=== PATIENT | male | born 1995 | race Caucasian/White ===

== ENCOUNTER 2024-09-09 06:54 | Inpatient (IN) | payer BC, OTHER ==
[2024-09-09 07:01] LABS: Glucose,Whole Blood 151 mg/dL (70-110)
[2024-09-09 07:09] LABS: Basophils # (A) 0.04 10*3/uL (0.00-0.10); Basophils % (A) 0.7 %; Eosinophils # (A) 0.21 10*3/uL (0.04-0.35); Eosinophils % (A) 3.8 %; HCT 46.9 % (39.6-50.0); HGB 15.9 g/dL (13.0-17.0); Lymphocytes % (A) 25.3 %; MCH 28.5 pg (27.0-32.0); MCHC 33.9 g/dL (32.0-37.0); MCV 84.2 fL (80.0-97.0); Mean Platelet Volume 10.5 fL (9.5-12.2); Monocytes # (A) 0.27 10*3/uL (0.20-1.00); Monocytes % (A) 4.9 %; Neutrophils # (A) 3.55 10*3/uL (1.80-7.70); Neutrophils % (A) 64.2 %; Platelet Count 194 10*3/uL (140-440); RBC 5.57 10*6/uL (4.40-5.60); RDW 11.9 % (11.5-14.5); WBC 5.53 10*3/uL (4.50-10.00)
[2024-09-09 07:24] LABS: AST 24 U/L (17-59); African American GFR (CKD) >90 (>60 ml/min/1.73 sqM); Alkaline Phosphatase 49 U/L (38-126); Anion Gap 20 mmol/L; Blood Urea Nitrogen 14 mg/dL (9-20); Calcium 9.8 mg/dL (8.4-10.2); Carbon Dioxide 13 mmol/L (22-30); Chloride 106 mmol/L (98-107); Glucose 173 mg/dL (74-99); Magnesium 2.2 mg/dL (1.6-2.3); Non-African American GFR(CKD) >90 (>60 ml/min/1.73 sqM); Potassium 4.2 mmol/L (3.5-5.1); Sodium 139 mmol/L (137-145); Total Bilirubin 0.6 mg/dL (0.2-1.3); Total Protein 7.5 g/dL (6.3-8.2)
--- NOTE | 2024-09-09 07:24 | ED ---
Seizure HPI - General Chief Complaint: Seizure Stated Complaint: Seizure Time Seen by Provider: 09/09/24 06:59 Source: patient, EMS, RN notes reviewed Mode of arrival: EMS Limitations: no limitations - History of Present Illness Initial Comments: 28-year-old male presents emerged part via EMS which complaint seizure. Patient is here with significant other states that he had a tonic-clonic seizure approximately 2 minutes upon EMS arrival patient was postictal. Patient has not no current complaints but is still confused. Patient has no history of seizures reported has been having some pain episodes over the last several months but has not been evaluated by a physician, patient does not take any current medications no illicit drug use no alcohol abuse. - Related Data Allergies Allergy/AdvReac Type Severity Reaction Status Date / Time No Known Allergies Allergy Verified 09/09/24 07:00 Review of Systems ROS Statement: Those systems with pertinent positive or pertinent negative responses have been documented in the HPI. ROS Other: All systems not noted in ROS Statement are negative. Past Medical History Past Medical History: No Reported History History of Any Multi-Drug Resistant Organisms: None Reported Past Surgical History: No Surgical Hx Reported Past Psychological History: No Psychological Hx Reported Smoking Status: Current every day smoker Past Alcohol Use History: None Reported Past Drug Use History: Marijuana General Exam Limitations: no limitations General appearance: alert, in no apparent distress Head exam: Present: atraumatic, normocephalic, normal inspection Eye exam: Present: normal appearance, PERRL, EOMI. Absent: scleral icterus, conjunctival injection, periorbital swelling ENT exam: Present: normal exam, normal oropharynx, mucous membranes moist Neck exam: Present: normal inspection, full ROM. Absent: tenderness, meningismus, lymphadenopathy Respiratory exam: Present: normal lung sounds bilaterally. Absent: respiratory distress, wheezes, rales, rhonchi, stridor Cardiovascular Exam: Present: regular rate, normal rhythm, normal heart sounds. Absent: systolic murmur, diastolic murmur, rubs, gallop, clicks GI/Abdominal exam: Present: soft, normal bowel sounds. Absent: distended, tenderness, guarding, rebound, rigid Neurological exam: Present: alert Course Vital Signs 09/09/24 09/09/24 06:55 08:06 Temperature 96.8 F L 97.4 F L Pulse Rate 89 68 Respiratory 17 20 Rate Blood Pressure 110/56 102/64 O2 Sat by Pulse 98 97 Oximetry Medical Decision Making - Medical Decision Making Was pt. sent in by a medical professional or institution (SREEKANTH Morgan, MAIL TECHNICIAN, urgent care, hospital, or [facility]cf...) When possible be specific @ -No Did you speak to anyone other than the patient for history (EMS, parent, family, police, friend...)? What history was obtained from this source @ -Friend providing history of complaint Did you review nursing and triage notes (agree or disagree)? Why? @ -I reviewed and agree with nursing and triage notes Were old charts reviewed (outside hosp., previous admission, EMS record, old EKG, old radiological studies, urgent care reports/EKG's, [facility] records)? Report findings @ -No old charts were reviewed Differential Diagnosis (chest pain, altered mental status, abdominal pain women, abdominal pain men, vaginal bleeding, weakness, fever, dyspnea, syncope, headache, dizziness, GI bleed, back pain, seizure, CVA, palpatations, mental health, musculoskeletal)? @ -Differential Seizure: Recurrent seizure disorder, febrile seizure, alcohol withdrawal, stimulants, meningitis, encephalitis, intercranial hemorrhage, intracranial tumor, stroke, eclampsia, thyrotoxicosis, hypocalcemia, hyponatremia, hypernatremia, hypomagnesemia, psychogenic, this is not meant to be an all-inclusive list. EKG interpreted by me (3pts min.). @ -As above X-rays interpreted by me (1pt min.). @ -None done CT interpreted by me (1pt min.). @ -CT brain showing no acute intracranial hemorrhage, mass effect U/S interpreted by me (1pt. min.). @ -None done What testing was considered but not performed or refused? (CT, X-rays, U/S, labs)? Why? @ -None What meds were considered but not given or refused? Why? @ -None Did you discuss the management of the patient with other professionals (nani conn i.e. SREEKANTH Morgan, MAIL TECHNICIAN, lab, RT, psych nurse, socially responsible investment adviser, risk manager, teacher, community service patrol officer, director case)? Give summary @ -EMH for admission Was smoking cessation discussed for >3mins.? @ -No Was critical care preformed (if so, how long)? @ -No Were there social determinants of health that impacted care today? How? (Homelessness, low income, unemployed, alcoholism, drug addiction, transportat ion, low edu. Level, literacy, decrease access to med. care, snf, rehab)? @ -No Was there de-escalation of care discussed even if they declined (Discuss DNR or withdrawal of care, Hospice)? DNR status @ -No What co-morbidities impacted this encounter? (DM, HTN, Smoking, COPD, CAD, Cancer, CVA, ARF, Chemo, Hep., AIDS, mental health diagnosis, sleep apnea, morbid obesity)? @ -None Was patient admitted / discharged? Hospital course, mention meds given and route, prescriptions, significant lab abnormalities, going to OR and other pertinent info. @ -Admitted patient presented for new onset seizure. Patient did have prolonged postictal state. Patient has negative workup otherwise will be admitted for neurology evaluation. Undiagnosed new problem with uncertain prognosis? @ -No Drug Therapy requiring intensive monitoring for toxicity (Heparin, Nitro, Insulin, Cardizem)? @ -No Were any procedures done? @ -No Diagnosis/symptom? @ -New onset seizures Acute, or Chronic, or Acute on Chronic? @ -Acute Uncomplicated (without systemic symptoms) or Complicated (systemic symptoms)? @ -complicated Side effects of treatment? @ -No Exacerbation, Progression, or Severe Exacerbation? @ -No Poses a threat to life or bodily function? How? (Chest pain, USA, AL, pneumonia, PE, COPD, DKA, ARF, appy, cholecystitis, CVA, Diverticulitis, Homicidal, Suicidal, threat to staff... and all critical care pts) @ -No - Lab Data Result diagrams: 09/09/24 07:01 09/09/24 07:01 Lab Results 09/09/24 09/09/24 09/09/24 Range/Units 07:00 07:01 07:01 WBC 5.53 (4.50-10.00) 10*3/uL RBC 5.57 (4.40-5.60) 10*6/uL Hgb 15.9 (13.0-17.0) g/dL Hct 46.9 (39.6-50.0) % MCV 84.2 (80.0-97.0) fL MCH 28.5 (27.0-32.0) pg MCHC 33.9 (32.0-37.0) g/dL Plt Count 194 (140-440) 10*3/uL MPV 10.5 (9.5-12.2) fL Immature Gran % (Auto) 1.1 % Neutrophils % 64.2 % Lymphocytes % 25.3 % Monocytes % 4.9 % Eosinophils % 3.8 % Basophils % 0.7 % Immature Gran # 0.06 H (0.00-0.04) 10*3/uL Neutrophils # 3.55 (1.80-7.70) 10*3/uL Lymphocytes # 1.40 (0.90-5.00) 10*3/uL Monocytes # 0.27 (0.20-1.00) 10*3/uL Eosinophils # 0.21 (0.04-0.35) 10*3/uL Basophils # 0.04 (0.00-0.10) 10*3/uL Sodium 139 (137-145) mmol/L Potassium 4.2 (3.5-5.1) mmol/L Chloride 106 (98-107) mmol/L Carbon Dioxide 13 L (22-30) mmol/L Anion Gap 20 mmol/L BUN 14 (9-20) mg/dL Creatinine 0.92 (0.66-1.25) mg/dL Est GFR (CKD-EPI)AfAm >90 (>60 ml/min/1.73 sqM) Est GFR (CKD-EPI)NonAf >90 (>60 ml/min/1.73 sqM) Glucose 173 H (74-99) mg/dL POC Glucose (mg/dL) 151 H (70-110) mg/dL POC [employer] Consultant ID Dye Aman Calcium 9.8 (8.4-10.2) mg/dL Magnesium 2.2 (1.6-2.3) mg/dL Total Bilirubin 0.6 (0.2-1.3) mg/dL AST 24 (17-59) U/L ALT 29 (4-49) U/L Alkaline Phosphatase 49 (38-126) U/L Total Protein 7.5 (6.3-8.2) g/dL Albumin 5.0 (3.5-5.0) g/dL - EKG Data -: EKG Interpreted by Me EKG Comments: EKG performed at 7: 05 sinus rhythm with a rate of 73 UT 145 QRS 94 QT/QTc 385/411 Disposition Clinical Impression: New onset seizure Disposition: ADMITTED IP TO THIS HOSP Condition: Fair Instructions (If sedation given, give patient instructions): Seizure/Epilepsy Discharge Instructions & Follow-Up Referrals: None,Stated [Primary Care Provider] - 1-2 days Time of Disposition: 08:34
[2024-09-09 07:31] LABS: ALT 29 U/L (4-49)
[2024-09-09] MEDS: SODIUM CHLORIDE 0.9% 500 ML 500 ML IV STA (08:03)
--- NOTE | 2024-09-09 08:03 | CT ---
EXAMINATION TYPE: CT brain wo con DATE OF EXAM: 09/09/2024 7:42 AM COMPARISON: None. CLINICAL INDICATION: Male, 28 years old with history of seizure activity new onset, new onset of seiz ure TECHNIQUE: Brain: Axial CT images of the brain were obtained with coronal and sagittal reformats created and rev iewed. Contrast used: None. Oral contrast used: None. CT DLP: 1097.4 mGycm, Automated exposure control for dose reduction was used. FINDINGS: Brain: Extra-axial spaces: No abnormal extra-axial fluid collections. Ventricular system: Within normal limits Cerebral parenchyma: No acute intraparenchymal hemorrhage or mass effect. The ya-white junction is well differentiated. Cerebellum: Unremarkable. Mass effect: No evidence of midline shift. Intracranial vasculature: unremarkable Soft tissues: Normal. Calvarium/osseous structures: No depressed skull fracture. Paranasal sinuses and mastoid air cells: Mild scattered paranasal sinus disease. Visualized orbits: Orbital contents are intact. IMPRESSION: No acute intracranial process. [facility], , 09/09/2024 8:00 AM
[2024-09-09] MEDS ORDERED: NALOXONE 0.4 MG/ML 1 ML VIAL IV PRN (08:34)
[2024-09-09] MEDS ORDERED: LORazepam 1 MG/0.5 ML VIAL IV PRN (08:35)
[2024-09-09 08:40] LABS: Amphetamine Screen,Urine Not Detected (NotDetected); Barbiturate Screen,Urine Not Detected (NotDetected); Benzodiazepines Screen,Urine Not Detected (NotDetected); Cocaine Screen,Urine Not Detected (NotDetected); Methadone Screen, Urine Not Detected (NotDetected); Opiate Screen,Urine Not Detected (NotDetected); Oxycodone Screen, Urine Not Detected (NotDetected); Phencyclidine Screen,Urine Not Detected (NotDetected); Tricyclic Antidepressant,Urine Not Detected (NotDetected); Urn Cannabinoid Scrn Detected (NotDetected)
[2024-09-09] MEDS: KETOROLAC 15 MG/ML 1 ML VIAL IVP STA (09:24)
[2024-09-09] MEDS: levETIRAcetam IV 500 MG/5 ML VIAL IVP STA (09:26)
--- NOTE | 2024-09-09 14:15 | XR ---
EXAMINATION TYPE: XR chest 1V portable DATE OF EXAM: 09/09/2024 2:11 PM COMPARISON: None CLINICAL INDICATION: Male, 28 years old with history of chf, , FINDINGS: Heart upper limits normal in size. Interstitial/vascular prominence without consolidation or pleural effusion. Old left midclavicular shaft fracture deformity healed in angulation. IMPRESSION: Interstitial/vascular prominence. Given the reported history of CHF, findings suggest mild pulmonary vascular congestion. [facility], Workstation: [facility], 09/09/2024 2:13 PM
[2024-09-09] MEDS: NICOTINE 14MG/24HR PATCH TRANSDERM SCH (15:02)
[2024-09-09 19:48] LABS: Appearance,Urine Turbid (Clear); Bilirubin,Urine Negative (Negative); Blood,Urine Negative (Negative); Color,Urine Colorless; Glucose,Urine (UA) Negative (Negative); Ketones,Urine Negative (Negative); Leukocyte Esterase,Urine Negative (Negative); Mucus,Urine Occasional /hpf; Nitrite,Urine Negative (Negative); PH, Urine 5.5 (5.0-8.0); Protein,Urine Negative (Negative); RBC,Urine <1 /hpf (0-5); Specific Gravity,Urine 1.016 (1.001-1.035); Uric Acid Crystals,Urine Few /hpf; Urobilinogen,Urine <2.0 mg/dL (<2.0); WBC,Urine 1 /hpf (0-5)
[2024-09-09] MEDS: ACETAMINOPHEN TAB 325 MG TAB PO PRN (20:43)
--- NOTE | 2024-09-10 00:33 | HP ---
HISTORY AND PHYSICAL CHIEF COMPLAINT: Seizure disorder. HISTORY OF PRESENT ILLNESS: This 28-year-old gentleman with a past medical history of no significant medical illness, has had seizure episode, appears to be generalized tonic-clonic, lasting for 2 minutes this morning, and the patient was taken to [facility]. The patient is slightly drowsy, still postictal and investigations ongoing. There is no history of any fever, rigors, chills at this time. THC is positive. PAST MEDICAL HISTORY: No significant cardiovascular illness. MEDICATIONS: None. ALLERGIES: None. FAMILY HISTORY: No history of seizures. SOCIAL HISTORY: History of THC smoking. REVIEW OF SYSTEMS: Fourteen-point review of systems is negative except as mentioned earlier. PHYSICAL EXAMINATION: VITAL SIGNS: Pulse 96, blood pressure 109/94, respirations 20. HEENT: Conjunctivae normal. NECK: n CARDIOVASCULAR: n ABDOMEN: Soft, nontender. EXTREMITIES: Legs, no edema. NERVOUS SYSTEM: No focal deficit. SKIN: No rashes LABORATORY DATA: Reviewed. ASSESSMENT: 1. Acute tonic-clonic seizures. 2. Elevated random glucose. 3. THC positive. 4. History of nicotine dependence. RECOMMENDATION: This 28-year-old gentleman presented with multiple complex medical. The patient was given a dose of Keppra. I would recommend EEG and evaluation by Neurology. A CT of the brain was unremarkable. Prognosis is guarded. Further recommendations were discussed with the family. MMRUTHYL / RAJANN: [id number] / MTDD
--- NOTE | 2024-09-10 02:33 | EEG ---
DATE OF SERVICE: 09/09/2024 ELECTROENCEPHALOGRAM REPORT PREAMBLE: This is a 28-year-old male with new-onset seizure. EEG FINDINGS: This is a 21-channel digital EEG recorded with video component, utilizing 20 international system with referential and bipolar montages. Background consists of well developed, well regulated moderate voltage activity in 9-10 hertz alpha. Background is posterior dominant and reactive to eye opening and closing. The patient was drowsy soon. Further recording was started with appearance of bilaterally symmetric theta frequency rhythm. Stage 2 sleep was attained with presence of vertex waves, K complexes and sleep spindles. Photic driving response was not seen. No focal or generalized epileptiform activity was seen. No electrographic seizure was recorded. IMPRESSION: This is a normal EEG mainly during drowsiness, and stage 2 sleep. Brief period of wakefulness revealed normal pattern. No focal, lateralized, or epileptiform activity was seen. MMRUTHYL / IJN: [id number] / MTDD
[2024-09-10 08:16] LABS: Basophils # (A) 0.03 X 10*3/uL (0.00-0.10); Basophils % (A) 0.4 %; Eosinophils # (A) 0.33 X 10*3/uL (0.04-0.35); Eosinophils % (A) 4.5 %; HCT 40.7 % (39.6-50.0); HGB 13.6 g/dL (13.0-17.0); Lymphocytes # (A) 2.77 X 10*3/uL (0.90-5.00); Lymphocytes % (A) 37.8 %; MCH 27.9 pg (27.0-32.0); MCHC 33.4 g/dL (32.0-37.0); MCV 83.6 FL (80.0-97.0); Mean Platelet Volume 11.1 FL (9.5-12.2); Monocytes # (A) 0.65 X 10*3/uL (0.20-1.00); Monocytes % (A) 8.9 %; NRBC Per 100 WBC 0 X 10*3/uL (0.00-0.01); Neutrophils # (A) 3.53 X 10*3/uL (1.80-7.70); Neutrophils % (A) 48.1 %; Platelet Count 165 X 10*3/uL (140-440); RBC 4.87 X 10*6/uL (4.40-5.60); RDW 12.1 % (11.5-14.5); WBC 7.33 X 10*3/uL (4.50-10.00)
[2024-09-10 08:43] LABS: Albumin 4.1 g/dL (3.8-4.9); BUN/Creat Ratio 12.67 Ratio (12.00-20.00); Blood Urea Nitrogen 11.4 mg/dL (9.0-27.0); Calcium 8.9 mg/dL (8.7-10.3); Carbon Dioxide 25.6 mmol/L (21.6-31.8); Chloride 108 mmol/L (96-109); Glucose 100 mg/dL (70-110); Potassium 3.7 mmol/L (3.5-5.5); Sodium 142 mmol/L (135-145); Total Protein 5.9 g/dL (6.2-8.2)
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
[2024-09-10 08:44] LABS: ALT 18 U/L (10-49); AST 19 U/L (14-35); Albumin/Globulin Ratio 2.28 Ratio (1.60-3.17); Alkaline Phosphatase 42 U/L (41-126); Globulin 1.8 g/dL (1.6-3.3); Total Bilirubin 0.6 mg/dL (0.3-1.2)
--- NOTE | 2024-09-10 13:22 | CA ---
Transthoracic Echo Report Name: Jacoby Kaufman Age: 28 Gender: M : 1995 Exam Date: 09/10/2024 10:15 Exam Location: [facility] Ht (in): 69 Wt (lb): 150 Ordering Physician: Rosa Campos MD Attending/Referring Phys: Innovation Manager Brenda Jauregui RDCS Procedure CPT: Indications: Syncope versus seizure Cardiac Hx: Technical Quality: Good Contrast 1: Total Dose (mL): Contrast 2: Total Dose (mL): MEASUREMENTS (Male / Female) Normal Values 2D ECHO LV Diastolic Diameter PLAX 4.7 cm 4.2 - 5.9 / 3.9 - 5.3 cm LV Systolic Diameter PLAX 3.4 cm IVS Diastolic Thickness 0.8 cm 0.6 - 1.0 / 0.6 - 0.9 cm LVPW Diastolic Thickness 0.8 cm 0.6 - 1.0 / 0.6 - 0.9 cm LV Relative Wall Thickness 0.3 RV Internal Dim ED PLAX 2.1 cm LVOT Diameter 2.3 cm Aortic Root Diameter 3.3 cm LA Systolic Diameter LX 3.2 cm 3.0 - 4.0 / 2.7 - 3.8 cm LV Diastolic Volume MOD BP 95.1 cm??? 67 - 155 / 56 - 104 cm??? LV Systolic Volume MOD BP 39.0 cm??? - 58 / 19 - 49 cm??? LV Ejection Fraction MOD BP 59.0 % >= 55 % LV Cardiac Index MOD BP 2003.6 cm???/min???m??? LV Diastolic Volume MOD 4C 81.9 cm??? LV Systolic Volume MOD 4C 37.3 cm??? LV Ejection Fraction MOD 4C 54.5 % LV Cardiac Index MOD 4C 1593.4 cm???/min???m??? LV Diastolic Length 4C 8.2 cm LV Systolic Length 4C 6.6 cm LV Diastolic Volume MOD 2C 102.6 cm??? LV Systolic Volume MOD 2C 39.1 cm??? LV Ejection Fraction MOD 2C 61.9 % LV Cardiac Index MOD 2C 2266.7 cm???/min???m??? LV Diastolic Length 2C 8.9 cm LV Systolic Length 2C 6.9 cm LA Volume 42.4 cm??? 18 - 58 / 22 - 52 cm??? LA Volume Index 23.3 cm???/m??? 16 - 28 cm???/m??? DOPPLER MV Peak Velocity 82.1 cm/s MV Peak Gradient 2.7 mmHg MV Mean Velocity 40.6 cm/s MV Mean Gradient 0.8 mmHg MV Velocity Time Integral 28.6 cm MV Area PHT 2.9 cm??? Mitral E Point Velocity 85.3 cm/s Mitral A Point Velocity 29.7 cm/s Mitral E to A Ratio 2.9 MV Deceleration Time 263.3 ms FINDINGS Left Ventricle Left ventricular ejection fraction is estimated at 55-60 %. Normal left ventricular systolic function with no obvious regional wall motion abnormalities. Left ventricular cavity size normal. Left ventricular wall thickness normal. Right Ventricle Normal right ventricular size and function. Unable to estimate the right ventricular systolic pressure. Right Atrium Normal right atrial size. Left Atrium Normal left atrial size. Mitral Valve Structurally normal mitral valve. No mitral stenosis. Trace mitral regurgitation. Aortic Valve Bicuspid aortic valve. No aortic stenosis. Trace aortic regurgitation. Tricuspid Valve Structurally normal tricuspid valve. No tricuspid stenosis. Trace tricuspid regurgitation. Pulmonic Valve Structurally normal pulmonic valve. No pulmonic stenosis. Trace pulmonic regurgitation. Pericardium No pericardial effusion. Aorta Normal size aortic root and proximal ascending aorta. CONCLUSIONS Normal LV size and systolic function. Minimal mitral and tricuspid and aortic insufficiency no pericardial effusions. Previewed by: Dr. Gilles Sampson MD (Electronically Signed) Final Date: 10 Sep 2024 13:21
--- NOTE | 2024-09-10 18:35 | MR ---
EXAMINATION TYPE: MR brain wo/w con DATE OF EXAM: 09/10/2024 6:10 PM COMPARISON: 09/09/2022 CLINICAL INDICATION: Male, 28 years old with history of New onset seizures; PHH, New onset seizures TECHNIQUE: Multi planar, multi sequence imaging was performed through the brain including: T1, T2, In version recovery, susceptibility weighted imaging and gradient echo imaging and Diffusion weighted im aging. The patient was then given intravenous contrast and multi planar, T1 fat-saturation images wer e obtained. IV Contrast: 6.5 mL Gadobutrol FINDINGS: The ya-white junctions, ventricular system, basal cisterns appear unremarkable. Diffusion-weighted imaging shows no evidence of restricted diffusion to suggest acute/subacute infarct. Intracranial ar terial flow voids are maintained. Midline structures show no abnormality. The susceptibility weighted images do not reveal any evidence for micro-hemorrhage. After administration of gadolinium, no abnor mal enhancement is seen. The bone marrow signal is within normal limits. Paranasal sinuses and mastoid air cells: No significant paranasal sinus disease. Visualized orbits: Orbital contents are intact. IMPRESSION: No evidence of intracranial mass, acute/subacute infarct, or abnormal enhancement. [facility], , 09/10/2024 6:32 PM
--- NOTE | 2024-09-10 23:00 | EEG ---
DATE OF SERVICE: 09/10/2024 ELECTROENCEPHALOGRAM REPORT PREAMBLE: This is a 28-year-old male, who has presented with new-onset seizure. This is a prolonged study performed for 1 hour. CURRENT MEDICATIONS: None. EEG FINDINGS: This is a 21-channel digital EEG recorded with video component, utilizing 10/20 international system with referential and bipolar montages. The recording start time is 7:18 a.m. on 09/10/2024 and recording end time is 8:18 a.m. on 09/10/2024. The background consists of well developed, well regulated moderate voltage activity in 9 hertz alpha. Background is posterior dominant and reactive to eye opening and closing. In the first quarter of the study, intermittent left temporal dysrhythmic theta and delta slowing was seen. However it was not reproduced in the later three-quarter part of the study. The patient became drowsy soon after recording was started with appearance of bilaterally symmetric theta frequency rhythm. Some left temporal sharp transients were seen, but did not appear clearly epileptiform. Stage 2 sleep was attained with appearance of much slowing of the background rhythm, with presence of vertex waves, sleep spindles, and K complexes. Photic driving response was not seen. No definitive focal or generalized epileptiform activity was seen. IMPRESSION: This is probably a normal EEG during wakefulness, drowsiness, and stage 2 sleep. No definitive focal, lateralized or epileptiform activity was seen. MARV / RAJANN: [id number] / PRABHJOT
[2024-09-11 02:03] VITALS: RESP 16
--- NOTE | 2024-09-11 04:46 | PN ---
PROGRESS NOTE DATE OF SERVICE: 09/10/2024 SUBJECTIVE: This is a 28-year-old gentleman, who was admitted after tonic-clonic seizures, being closely monitored. No chest pain. No palpitations. OBJECTIVE: VITAL SIGNS: Pulse 61, blood pressure 107/60, and respirations 16. CHEST: Clear to auscultation. CARDIOVASCULAR: S1 and S2. ABDOMEN: Soft. NERVOUS SYSTEM: Nonfocal. LABORATORY DATA: Reviewed. ASSESSMENT: 1. Acute tonic-clonic seizures. 2. Elevated random glucose. 3. THC positive. 4. History of nicotine dependence. RECOMMENDATIONS: Recommended to continue current management. Continue the MRI and rest of the evaluations. Closely follow, seizure precautions. Closely follow up with Neurology. Further recommendations to follow. MMODL / IJN: [id number] /
[2024-09-11 07:25] VITALS: BP 101/57; PULSE 61; TEMP 98.5
--- NOTE | 2024-09-11 10:46 | P.PN ---
Subjective Progress Note Date: 09/10/24 Patient was seen for follow-up. Offers no new complaints. States he feels very tired. Denies any headache, no memory loss, no fever. No dizziness. Patient's states that he does frequently sleep whenever he is resting, which is his norm. Objective - Vital Signs Vital signs: Vital Signs Temp 98.3 F 09/10/24 07:26 Pulse 66 09/10/24 07:26 Resp 16 09/10/24 07:26 BP 115/66 09/10/24 07:26 Pulse Ox 99 09/10/24 07:26 FiO2 Intake & Output 09/09/24 09/10/24 09/10/24 18:59 06:59 18:59 Intake Total 540 118 Balance 540 118 Weight 68.039 kg Intake: Oral 540 118 Other: Voiding Method Toilet Toilet # Voids 2 - Exam Normal, nonfocal. - Labs CBC & Chem 7: 09/10/24 04:41 09/10/24 04:41 Labs: Abnormal Lab Results - Last 24 Hours (Table) 09/09/24 09/10/24 Range/Units 18:08 04:41 Total Protein 5.9 L (6.2-8.2) g/dL Uric Acid Crystals Few H (None) /hpf Urine Mucus Occasional H (None) /hpf Assessment and Plan Assessment: * New onset seizure, unclear etiology. Patient has been having recurrent stereotypical spells of possible "panic attacks", during which he becomes somewhat confused, sweat, lasting for about 10 minutes. Uncertain if these represent partial seizures. * Marijuana use Plan: * Initial routine EEG was performed, which was normal mainly during drowsiness and stage II sleep. Some periods of wakefulness were normal. No obvious epileptiform activity was seen. * Repeat prolonged EEG for 1 hour performed today was again normal during wakefulness, drowsiness and stage II sleep. No definitive focal, lateralized or epileptiform activity was seen. * MRI of the brain with and without contrast still pending. * Telemetry monitoring. * 2D echo revealed normal LV size and systolic function, with EF 55 to 60%. Left ventricular cavity size is normal. Normal right atrial size. Normal left atrial size. * Patient has received a loading dose of Keppra 1500 mg once in the ER. We will hold off on maintenance dose pending above workup. * Patient's mentation is back to normal, denies any headache. No indication for lumbar puncture at this time. * Patient and his are informed of [place] state law of no driving unless seizure-free for 6 months, climbing ladders, operating dangerous machinery or unsupervised swimming.
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
[2024-09-11] MEDS: levETIRAcetam 500 MG TAB PO SCH (13:36)
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
== END 2024-09-11 14:02 | disposition home or self-care (01) | DRG 101 ==
LOC: EC 06:54 → 5NMEDONC 08:49 → 3SCARD 09:12 → 6NMEDSUR 09:15
PROVIDERS: ADMIT Internal Medicine; ATTEND Internal Medicine
PROC: 4A10X4Z Monitoring of Central Nervous Electrical Activity, External Approach (ICD-10-PCS; 2024-09-09)
PROC: 4A10X4Z Monitoring of Central Nervous Electrical Activity, External Approach (ICD-10-PCS; principal; 2024-09-10)
DX: R56.9 Unspecified convulsions (principal); I50.9 Heart failure, unspecified; F12.90 Cannabis use, unspecified, uncomplicated; I08.3 Combined rheumatic disorders of mitral, aortic and tricuspid valves; F17.210 Nicotine dependence, cigarettes, uncomplicated; F41.9 Anxiety disorder, unspecified; Z87.820 Personal history of traumatic brain injury; Z86.59 Personal history of other mental and behavioral disorders; Z87.81 Personal history of (healed) traumatic fracture
CPT/HCPCS: 36415; 70450; 70553; 71045; 80053; 80306; 81001; 82550; 83735; 85025; 93005; 93306; 95812; 95819; 96361; 96374; 96375; 99285